=== PATIENT | male | born 1990 | race Caucasian/White ===

== ENCOUNTER 2024-07-07 02:15 | Observation (INO) | payer OTHER ==
[2024-07-07 03:06] VITALS: BMI 24.5
[2024-07-07] MEDS ORDERED: Ondansetron ODT 4 MG TAB PO PRN (05:00)
[2024-07-07] MEDS ORDERED: Glucagon 1 MG/ML KIT IM PRN (05:00)
[2024-07-07] MEDS ORDERED: Dextrose 5% in Water 1,000 ML IV PRN (05:00)
[2024-07-07] MEDS ORDERED: Dextrose 50% Abboject 50 ML SYRINGE SLOW IVP PRN (05:00)
[2024-07-07] MEDS: CEFAZOLIN 2 GM in Sodium Chloride 0.9% 100 ML IVPB SCH (05:44)
[2024-07-07] MEDS: Morphine 2 MG/ML VIAL SLOW IVP PRN (05:44)
[2024-07-07] MEDS: traMADol HCl 50 MG TAB PO PRN (08:37)
[2024-07-07] MEDS ORDERED: VANCOMYCIN IVPB PRN (08:52)
[2024-07-07] MEDS ORDERED: Vancomycin 1.5 GRAM/300 ML BAG IVPB SCH (09:00)
[2024-07-07] MEDS: Piperacillin/Tazobactam 3.375 GM in Sodium Chloride 0.9% 100 ML IVPB SCH (09:12)
[2024-07-07] MEDS: Vancomycin (BATCH) 2 GM in Premix 1 BAG IVPB SCH (09:17)
[2024-07-07] MEDS ORDERED: fentaNYL PF 100 MCG/2 ML SYRINGE ONE (10:56)
[2024-07-07] MEDS ORDERED: Lidocaine 2% PF 5 ML VIAL ONE (10:57)
[2024-07-07] MEDS ORDERED: Midazolam HCl 2 mg/2 ml Vial ONE ×2 (10:57→11:58)
[2024-07-07] MEDS ORDERED: PROPOFOL 20 ML ONE ×2 (10:57→12:21)
[2024-07-07] MEDS ORDERED: Bupivacaine PF 0.5% 30 ML VIAL ONE (12:17)
[2024-07-07] MEDS ORDERED: Dexamethasone 4 mg/ml Vial ONE (12:20)
[2024-07-07] MEDS ORDERED: Ondansetron PF 4 MG/2 ML Vial ONE (12:20)
[2024-07-07] MEDS ORDERED: Ketorolac Tromethamine 30 MG (1 mL) VIAL ONE (12:45)
[2024-07-07] MEDS: Vancomycin (BATCH) 1.5 GM in Premix 1 BAG IVPB SCH (22:05)
[2024-07-08 07:18] LABS: Vancomycin, Random 18.7 ug/mL (See Comment)
[2024-07-08] MEDS: Acetaminophen 325 MG TAB PO PRN (09:17)
[2024-07-08] MEDS: HYDROcodone/Acetaminophen 5/325 mg Tablet PO SCH (09:42)
[2024-07-08 12:20] VITALS: BP 114/66; TEMP 97.9
[2024-07-08] MEDS ORDERED: VANCOMYCIN 1.25 GM/250 ML BAG 1.25 GM in Premix 1 BAG IVPB SCH (21:00)
== END 2024-07-08 13:53 | disposition home or self-care (01) ==
LOC: SURG B 02:51
PROVIDERS: ADMIT Orthopaedic Surgery; ATTEND Orthopaedic Surgery
PROC: 0PBV0ZZ Excision of Left Finger Phalanx, Open Approach (ICD-10-PCS; principal; 2024-07-08)
DX: S62.613B Displaced fracture of proximal phalanx of left middle finger, initial encounter for open fracture (principal); Y04.0XXA Assault by unarmed brawl or fight, initial encounter; F17.210 Nicotine dependence, cigarettes, uncomplicated; F12.90 Cannabis use, unspecified, uncomplicated; F10.90 Alcohol use, unspecified, uncomplicated; Y90.9 Presence of alcohol in blood, level not specified
CPT/HCPCS: 36415; 80048; 80202; 82565; 83605; 85025; 87040; 87070; 87205; 96365; 96375; 96376; G0378; J0665; J1100; J1171; J1885; J2250; J2272; J2405; J2543; J2704; J3370